=== PATIENT | female | born 1975 | race Caucasian/White ===

== ENCOUNTER 2017-06-05 08:15 | Emergency (ER) | payer BC ==
[~2017-06-05] VITALS: Ht 170.2 cm; Wt 82.0 kg
[2017-06-05] MEDS ORDERED: IPRATROPIUM BROMIDE (0.02%) 0.5MG/2.5ML NEB HHN STA (08:28)
[2017-06-05] MEDS ORDERED: ALBUTEROL (0.083%) 2.5MG/3ML NEB HHN STA (08:28)
[2017-06-05] MEDS ORDERED: METHYLPREDNISOLONE SOD SUCC 125 MG/2 ML VIAL IV STA (08:28)
[2017-06-05] MEDS ORDERED: MAGNESIUM 2 G PREMIX 50 ML IV STA (08:28)
[2017-06-05] MEDS ORDERED: IBUPROFEN 600MG TABLET PO ONE (10:15)
[2017-06-05 10:44] VITALS: BP 151/85
== END 2017-06-05 11:55 | disposition home or self-care (01) ==
LOC: ER 08:30
DX: J45.901 Unspecified asthma with (acute) exacerbation (principal); F41.8 Other specified anxiety disorders; Z88.5 Allergy status to narcotic agent
CPT/HCPCS: 71010; 93005; 94644; 96365; 96375; 99285; J2930; J3475; J7611

== ENCOUNTER → 2020-05-03 | Outpatient (CLI) | payer BC ==
[~2020-05-03] MED LIST: ALBUTEROL INHALER; FLUT1DIS6 IH; MONT10TA26 PO; PROVENTIL INHALER
== END | disposition home or self-care (01) ==
LOC: LAB 14:00
PROVIDERS: ATTEND Obstetrics & Gynecology Obstetrics
DX: Z01.812 Encounter for preprocedural laboratory examination (principal); Z20.828 Contact with and (suspected) exposure to other viral communicable diseases
CPT/HCPCS: C9803; U0003

== ENCOUNTER 2020-05-05 10:21 | Day surgery (SDC) | payer BC ==
[~2020-05-05] VITALS: Ht 167.6 cm; Wt 92.5 kg
[~2020-05-05 10:21] MED LIST changes: -MONT10TA26 PO; +MONT10TA96 PO
[2020-05-05] MEDS ORDERED: LACTATED RINGERS 1,000 ML IV SCH (10:30)
[2020-05-05 10:58] LABS: BASOPHILS % 0.9 % (0.0-2.0); EOSINOPHILS % 2.1 % (0.0-5.0); HEMATOCRIT. 36.7 % (36.0-48.0); HEMOGLOBIN. 12.1 g/dL (12.0-16.0); LYMPHOCYTES % 17.6 % (20.0-50.0); MEAN CORPUSCULAR HEMOGLOBIN 28.1 pg (28.0-32.0); MEAN CORPUSCULAR VOLUME 84.9 fL (81.0-99.0); MONOCYTES % 9.9 % (2.0-8.0); NEUTROPHILS % 69.5 % (40.0-76.0); PLATELET 273 x1000/uL (130-400); RED BLOOD CELL COUNT 4.32 mill/uL (4.2-5.4); RED CELL DISTRIBUTION WIDTH 15.6 % (11.6-14.6)
[2020-05-05 11:01] LABS: CLARITY URINE CLEAR (CLEAR); COLOR URINE YELLOW (YELLOW); KETONES URINE NEGATIVE (NEGATIVE); LEUKOCYTE ESTERASE URINE 1+ (NEGATIVE); NITRITE URINE NEGATIVE (NEGATIVE); OCCULT BLOOD URINE NEGATIVE (NEGATIVE); PROTEIN URINE NEGATIVE (NEGATIVE); SPECIFIC GRAVITY URINE 1.023 (1.005-1.030)
[2020-05-05 11:04] LABS: UCG SCREEN POSITIVE
[2020-05-05 11:04] LABS: CHLORIDE 104 mEq/L (98-107)
[2020-05-05] MEDS ORDERED: MIDAZOLAM HCL 2 MG/2 ML VIAL ONE (12:18)
[2020-05-05] MEDS ORDERED: FENTANYL CITRATE/PF 50MCG/ML 2ML VIAL ONE (12:18)
[2020-05-05] MEDS ORDERED: CEFAZOLIN SODIUM 1000MG/VIAL ONE (12:19)
[2020-05-05] MEDS ORDERED: SODIUM CHLORIDE 0.9% 10ML VIAL ONE (12:19)
[2020-05-05] MEDS ORDERED: PROPOFOL 200MG/20ML VIAL IV ONE (12:24)
[2020-05-05] MEDS ORDERED: LIDOCAINE HCL/PF 1% 10 MG/ML 5ML VIAL ONE (12:24)
[2020-05-05] MEDS ORDERED: ROCURONIUM BROMIDE 10MG/ML VIAL 5ML IV ONE (12:31)
[2020-05-05] MEDS ORDERED: DEXAMETHASONE 4MG/ML 1ML VIAL ONE ×2 (13:05→13:18)
[2020-05-05] MEDS ORDERED: METOCLOPRAMIDE HCL 10MG/2ML VIAL ONE (13:10)
[2020-05-05] MEDS ORDERED: ONDANSETRON HCL 4MG/2ML INJ ONE (13:10)
[2020-05-05] MEDS ORDERED: HYDROMORPHONE HCL/PF 2MG/ML CPJ IV PRN (13:45)
== END 2020-05-05 15:30 | disposition home or self-care (01) ==
LOC: OR 10:21
PROVIDERS: ATTEND Obstetrics & Gynecology Obstetrics
DX: O02.1 Missed abortion (principal); D25.9 Leiomyoma of uterus, unspecified; J45.909 Unspecified asthma, uncomplicated; I10 Essential (primary) hypertension; E66.9 Obesity, unspecified; Z98.891 History of uterine scar from previous surgery; Z88.5 Allergy status to narcotic agent; Z79.899 Other long term (current) drug therapy; Z80.9 Family history of malignant neoplasm, unspecified; Z82.3 Family history of stroke; Z82.49 Family history of ischemic heart disease and other diseases of the circulatory system; Z68.33 Body mass index [BMI] 33.0-33.9, adult
CPT/HCPCS: 36415; 59820; 80048; 81003; 81025; 85025; 86900; 86901; 88305; J0690; J1100; J2250; J2405; J2704; J2765; J3010; J3490

== ENCOUNTER 2023-12-30 22:58 | Inpatient (IN) | payer OTHER, MEDICAID ==
[~2023-12-30] VITALS: Ht 167.6 cm; Wt 93.4 kg
[~2023-12-30 22:58] MED LIST changes: -ALBUTEROL INHALER; +MONT-39 PO; -MONT10TA96 PO
[2023-12-30 23:15] VITALS: RESP 42
[2023-12-30] MEDS ORDERED: EPINEPHRINE 1:1000 1 MG/ML AMP INJ ONE (23:15)
[2023-12-30 23:41] VITALS: RESP 23
[2023-12-30] MEDS: IPRATROPIUM BROMIDE (0.02%) 0.5MG/2.5ML NEB HHN STA (23:41)
[2023-12-30] MEDS: ALBUTEROL (0.083%) 2.5MG/3ML NEB HHN SCH (23:41)
[2023-12-30] MEDS: EPINEPHRINE 1:1000 1 MG/ML AMP IM NR (23:43)
[2023-12-31] VITALS (16 sets, daily range): BP systolic 93–123; BP diastolic 72–93; PULSE 79–90; RESP 14–50; TEMP 98.3–98.5; O2SAT 97–99
[2023-12-31] MEDS: DEXAMETHASONE 4MG/ML 1ML VIAL IV ONE (00:09)
[2023-12-31] MEDS: MAGNESIUM 2 G PREMIX 50 ML IV ONE (00:20)
[2023-12-31 00:23] LABS: BG CARBOXYHEMOGLOBIN 0.3 % (0.5-1.5); BG DEOXYHEMOGLOBIN 40.6 % (0.0-5.0); BG FRACTION INSPIRED OXYGEN 40; BG HCO3 ACT 25.8 mmol/L (22.0-26.0); BG METHEMOGLOBIN 0.3 % (0.0-1.5); BG OXYGEN SATURATION 59.2 % (92.0-98.5); BG OXYHEMOGLOBIN 58.8 % (94.0-97.0); BG PCO2 46.5 mmHg (35.0-45.0); BG PH 7.362 (7.350-7.450); BG PO2 30.7 mmHg (75.0-100.0); BG SAMPLE SITE LEFT BRACHIAL; BG TOTAL HEMOGLOBIN 14.1 g/dL (12.0-18.0); BG VENT MODE MASK - BIPAP
[2023-12-31 00:29] LABS: BASOPHILS % 1.1 % (0.0-2.0); EOSINOPHILS % 7.6 % (0.0-5.0); HEMOGLOBIN. 12.9 g/dL (12.0-16.0); LYMPHOCYTES % 7.2 % (20.0-50.0); MEAN CORPUSCULAR HEMOGLOBIN 29.3 pg (28.0-32.0); MEAN CORPUSCULAR HGB CONC 33.1 g/dL (31.0-37.0); MEAN CORPUSCULAR VOLUME 88.4 fL (81.0-99.0); MEAN PLATELET VOLUME 8.8 fl (7.4-10.4); MONOCYTES % 4.1 % (2.0-8.0); PLATELET 293 x1000/uL (130-400); RED BLOOD CELL COUNT 4.41 mill/uL (4.2-5.4); RED CELL DISTRIBUTION WIDTH 13.2 % (11.6-14.6); WHITE BLOOD COUNT 8.3 x1000/uL (4.5-11.0)
[2023-12-31 00:34] LABS: CHLORIDE 108 mEq/L (98-107); POTASSIUM 3.8 mEq/L (3.5-5.1); SODIUM 141 mEq/L (136-145)
[2023-12-31 00:35] LABS: CALCIUM 9.7 mg/dL (8.7-10.4); CARBON DIOXIDE 25 mEq/L (21-32)
[2023-12-31 00:40] LABS: CREATININE 0.8 mg/dL (0.6-1.0); GLUCOSE 123 mg/dL (70-105); UREA NITROGEN BLOOD 9 mg/dL (9-23)
[2023-12-31 00:42] LABS: ALANINE AMINOTRANSFERASE 16 IU/L (10-49); ALBUMIN 4.4 g/dL (3.2-4.8); ASPARTATE AMINOTRANSFERASE 17 IU/L (<34); BILIRUBIN TOTAL 0.4 mg/dL (0.1-1.0); PROTEIN TOTAL 7.6 g/dL (6.0-8.3)
[2023-12-31 00:54] LABS: HCG SCREEN NEGATIVE
[2023-12-31 01:18] LABS: TROPONIN I HIGH SENSITIVITY < 4 ng/L (3.0-34)
[2023-12-31] MEDS ORDERED: IPRATROPIUM/ALBUTEROL 0.5-3(2.5)MG/3ML NEB HHN PRN (02:30)
[2023-12-31] MEDS ORDERED: ONDANSETRON HCL 4MG/2ML INJ IV PRN (02:30)
[2023-12-31 02:46] LABS: BG CARBOXYHEMOGLOBIN 0.1 % (0.5-1.5); BG FRACTION INSPIRED OXYGEN 40; BG HCO3 ACT 25.4 mmol/L (22.0-26.0); BG METHEMOGLOBIN 0.2 % (0.0-1.5); BG OXYHEMOGLOBIN 98.7 % (94.0-97.0); BG PCO2 44.2 mmHg (35.0-45.0); BG PH 7.378 (7.350-7.450); BG PO2 148.4 mmHg (75.0-100.0); BG SAMPLE SITE RIGHT RADIAL; BG TOTAL HEMOGLOBIN 14.3 g/dL (12.0-18.0); BG TOTAL RESPIRATORY RATE 21 b/min; BG VENT MODE MASK - BIPAP
[2023-12-31] MEDS ORDERED: FLUTICASONE/VILANTEROL 200-25 BLST.W.DEV ORI SCH (09:00)
[2023-12-31] MEDS: LOSARTAN 25 MG TABLET PO SCH (10:45)
[2023-12-31] MEDS: FAMOTIDINE 20MG/2ML VIAL IV SCH (14:32)
[2023-12-31] MEDS: METHYLPREDNISOLONE SOD SUCC 40MG/ML (ACT-O-VIAL) IV SCH (14:32)
[2023-12-31] MEDS: ACETAMINOPHEN 325MG TABLET PO PRN (14:38)
[2023-12-31] MEDS: IPRATROPIUM/ALBUTEROL 0.5-3(2.5)MG/3ML NEB HHN SCH (15:33)
[2023-12-31] MEDS: MONTELUKAST SODIUM 10MG TABLET PO SCH (17:05)
[2023-12-31] MEDS: DULOXETINE HCL 30MG DR CAPSULE PO SCH (21:23)
[2023-12-31] MEDS: MYCOPHENOLATE MOFETIL 500MG TABLET PO SCH (21:24)
[2023-12-31 22:47] LABS: HEPATITIS B SURFACE ANTIGEN NEGATIVE (Negative)
[2023-12-31 23:08] LABS: HEPATITIS C AB NON REACTIVE (Neg) (Negative)
[2024-01-01] VITALS (17 sets, daily range): BP systolic 96–122; BP diastolic 67–96; PULSE 68–104; RESP 14–40; TEMP 97.2–98.2; O2SAT 95–98
[2024-01-01] MEDS ORDERED: METHYLPREDNISOLONE SOD SUCC 40MG/ML (ACT-O-VIAL) IV SCH
[2024-01-01] MEDS: METHYLPREDNISOLONE SOD SUCC 125MG/2ML (ACT-O-VIAL) IV SCH (06:00)
[2024-01-01 06:29] LABS: HEMATOCRIT. 41.4 % (36.0-48.0); HEMOGLOBIN. 13.3 g/dL (12.0-16.0); MEAN CORPUSCULAR HEMOGLOBIN 28.7 pg (28.0-32.0); MEAN CORPUSCULAR HGB CONC 32.1 g/dL (31.0-37.0); MEAN CORPUSCULAR VOLUME 89.4 fL (81.0-99.0); PLATELET 309 x1000/uL (130-400); RED BLOOD CELL COUNT 4.63 mill/uL (4.2-5.4); RED CELL DISTRIBUTION WIDTH 13.9 % (11.6-14.6); WHITE BLOOD COUNT 13.1 x1000/uL (4.5-11.0)
[2024-01-01 06:48] LABS: CARBON DIOXIDE 25 mEq/L (21-32); CHLORIDE 106 mEq/L (98-107); POTASSIUM 4.6 mEq/L (3.5-5.1); SODIUM 136 mEq/L (136-145)
[2024-01-01 06:49] LABS: CALCIUM 9.6 mg/dL (8.7-10.4)
[2024-01-01 06:53] LABS: CREATININE 0.8 mg/dL (0.6-1.0)
[2024-01-01 06:54] LABS: GLUCOSE 198 mg/dL (70-105); UREA NITROGEN BLOOD 12 mg/dL (9-23)
[2024-01-01 07:21] LABS: DIFFERENTIAL COMMENT 1
[2024-01-01 08:33] LABS: CREATINE KINASE 49 IU/L (34-145)
[2024-01-01] MEDS: FOLIC ACID 1MG TABLET PO SCH (08:37)
[2024-01-01] MEDS: METHOTREXATE SODIUM 2 . 5MG TABLET PO SCH ×3 (08:38→21:18)
[2024-01-01] MEDS: TRAMADOL 50MG TABLET PO PRN (08:39)
[2024-01-01] MEDS: OLANZAPINE 10 MG/VIAL IM NR (11:30)
[2024-01-01] MEDS ORDERED: OLANZAPINE 10 MG/VIAL IM NR (12:00)
[2024-01-01] MEDS ORDERED: NALOXONE HCL 0.4MG/ML VIAL IV PRN (15:45)
[2024-01-01 16:24] LABS: PLATELET ESTIMATE NORMAL
[2024-01-01] MEDS: DOCUSATE SODIUM 250MG CAPSULE PO PRN (18:04)
[2024-01-02] VITALS (17 sets, daily range): BP systolic 96–120; BP diastolic 79–95; PULSE 62–91; RESP 0–27; TEMP 97.4–98.4; O2SAT 96–98
[2024-01-02] MEDS ORDERED: LIDOCAINE HCL/PF 1% 2ML VIAL ONE (09:00)
[2024-01-02 09:07] LABS: ANTI-DNA DOUBLE STRANDED QUANT < 1 IU/mL (0-9)
[2024-01-02 09:29] LABS: CARBON DIOXIDE 23 mEq/L (21-32); CHLORIDE 104 mEq/L (98-107); POTASSIUM 4.9 mEq/L (3.5-5.1); SODIUM 135 mEq/L (136-145)
[2024-01-02 09:30] LABS: CALCIUM 9.5 mg/dL (8.7-10.4)
[2024-01-02 09:35] LABS: CREATININE 0.7 mg/dL (0.6-1.0); GLUCOSE 167 mg/dL (70-105); UREA NITROGEN BLOOD 11 mg/dL (9-23)
[2024-01-02 11:11] LABS: HEMATOCRIT. 40.9 % (36.0-48.0); HEMOGLOBIN. 13.5 g/dL (12.0-16.0); MEAN CORPUSCULAR HEMOGLOBIN 29.6 pg (28.0-32.0); MEAN CORPUSCULAR HGB CONC 32.9 g/dL (31.0-37.0); MEAN CORPUSCULAR VOLUME 89.8 fL (81.0-99.0); MEAN PLATELET VOLUME 9.2 fl (7.4-10.4); RED BLOOD CELL COUNT 4.56 mill/uL (4.2-5.4); RED CELL DISTRIBUTION WIDTH 14.1 % (11.6-14.6); WHITE BLOOD COUNT 14.3 x1000/uL (4.5-11.0)
[2024-01-02 11:15] LABS: DIFFERENTIAL COMMENT 1; PLATELET 309 x1000/uL (130-400)
[2024-01-02] MEDS ORDERED: LIDOCAINE HCL/PF 1% 2ML VIAL INFIL NR (15:00)
[2024-01-02 16:00] LABS: BG BASE EXCESS -0.6 mmol/L (-2.0-2.0); BG CARBOXYHEMOGLOBIN 0.1 % (0.5-1.5); BG FRACTION INSPIRED OXYGEN 21; BG HCO3 ACT 22.7 mmol/L (22.0-26.0); BG METHEMOGLOBIN 0.1 % (0.0-1.5); BG OXYHEMOGLOBIN 96.8 % (94.0-97.0); BG PCO2 33.7 mmHg (35.0-45.0); BG PH 7.447 (7.350-7.450); BG PO2 84.7 mmHg (75.0-100.0); BG SAMPLE SITE RIGHT RADIAL; BG TOTAL HEMOGLOBIN 14.4 g/dL (12.0-18.0); BG VENT MODE ROOM AIR
[2024-01-02 16:02] LABS: PLATELET ESTIMATE NORMAL
[2024-01-02] MEDS: METHYLPREDNISOLONE SOD SUCC 125MG/2ML (ACT-O-VIAL) IV SCH (23:05)
[2024-01-03] VITALS (17 sets, daily range): BP systolic 101–137; BP diastolic 76–95; PULSE 57–87; RESP 10–21; TEMP 97.6–98.4; O2SAT 98–100
[2024-01-03 09:11] LABS: ANGIOTENSION CONVERTING ENZYME 30 U/L (14-82)
[2024-01-03 10:12] LABS: ANTI-JO 1 ABS >8.0 AI (0.0-0.9); RNP ANTIBODY < 0.2 AI (0.0-0.9); SMITH ANTIBODY < 0.2 AI (0.0-0.9)
[2024-01-03] MEDS: OLANZAPINE 5MG TABLET PO SCH (15:20)
[2024-01-03] MEDS ORDERED: IBUPROFEN 400MG TABLET PO NR (16:47)
[2024-01-03 17:06] LABS: ALDOLASE 3.7 U/L (3.3-10.3)
[2024-01-03 20:14] LABS: HEMOGLOBIN. 12.9 g/dL (12.0-16.0); MEAN CORPUSCULAR HEMOGLOBIN 29.4 pg (28.0-32.0); MEAN CORPUSCULAR HGB CONC 32.9 g/dL (31.0-37.0); MEAN CORPUSCULAR VOLUME 89.4 fL (81.0-99.0); MEAN PLATELET VOLUME 8.8 fl (7.4-10.4); PLATELET 288 x1000/uL (130-400); RED BLOOD CELL COUNT 4.37 mill/uL (4.2-5.4); RED CELL DISTRIBUTION WIDTH 13.6 % (11.6-14.6); WHITE BLOOD COUNT 8.7 x1000/uL (4.5-11.0)
[2024-01-03 20:17] LABS: DIFFERENTIAL COMMENT 1
[2024-01-03 20:20] LABS: CHLORIDE 103 mEq/L (98-107); POTASSIUM 4.5 mEq/L (3.5-5.1); SODIUM 134 mEq/L (136-145)
[2024-01-03 20:21] LABS: CARBON DIOXIDE 25 mEq/L (21-32)
[2024-01-03 20:22] LABS: CALCIUM 8.8 mg/dL (8.7-10.4)
[2024-01-03 20:26] LABS: CREATININE 0.9 mg/dL (0.6-1.0); GLUCOSE 257 mg/dL (70-105); UREA NITROGEN BLOOD 17 mg/dL (9-23)
[2024-01-03 20:36] LABS: PLATELET ESTIMATE NORMAL
[2024-01-04] VITALS (16 sets, daily range): BP systolic 105–140; BP diastolic 76–106; PULSE 54–102; RESP 10–19; TEMP 97.1–97.9; O2SAT 98–100
[2024-01-04] MEDS: METHYLPREDNISOLONE SOD SUCC 125MG/2ML (ACT-O-VIAL) IV SCH (05:16)
[2024-01-04 07:44] LABS: HEMATOCRIT. 40.5 % (36.0-48.0); HEMOGLOBIN. 13.1 g/dL (12.0-16.0); MEAN CORPUSCULAR HGB CONC 32.4 g/dL (31.0-37.0); MEAN CORPUSCULAR VOLUME 89.6 fL (81.0-99.0); MEAN PLATELET VOLUME 8.9 fl (7.4-10.4); PLATELET 268 x1000/uL (130-400); RED BLOOD CELL COUNT 4.52 mill/uL (4.2-5.4); RED CELL DISTRIBUTION WIDTH 13.7 % (11.6-14.6)
[2024-01-04 07:48] LABS: DIFFERENTIAL COMMENT 1
[2024-01-04 08:19] LABS: CARBON DIOXIDE 27 mEq/L (21-32); CHLORIDE 102 mEq/L (98-107); POTASSIUM 4.4 mEq/L (3.5-5.1); SODIUM 136 mEq/L (136-145)
[2024-01-04 08:25] LABS: CREATININE 0.8 mg/dL (0.6-1.0); GLUCOSE 196 mg/dL (70-105); UREA NITROGEN BLOOD 16 mg/dL (9-23)
[2024-01-04] MEDS: PILOCARPINE HCL 5MG TABLET PO SCH (14:17)
[2024-01-04 15:51] LABS: PLATELET ESTIMATE NORMAL
[2024-01-04] MEDS: CLONIDINE 0.1MG TABLET PO PRN (23:15)
[2024-01-05] VITALS (11 sets, daily range): BP systolic 104–142; BP diastolic 66–107; PULSE 65–103; RESP 11–18; TEMP 97–97.5
[2024-01-05 10:49] LABS: BG BASE EXCESS 0.7 mmol/L (-2.0-2.0); BG CARBOXYHEMOGLOBIN 0.8 % (0.5-1.5); BG DEOXYHEMOGLOBIN 6.2 % (0.0-5.0); BG METHEMOGLOBIN 0.1 % (0.0-1.5); BG OXYGEN SATURATION 93.7 % (92.0-98.5); BG OXYHEMOGLOBIN 92.9 % (94.0-97.0); BG PH 7.425 (7.350-7.450); BG PO2 66.3 mmHg (75.0-100.0); BG SAMPLE SITE LEFT RADIAL; BG TOTAL HEMOGLOBIN 14.3 g/dL (12.0-18.0); BG VENT MODE ROOM AIR
[2024-01-05] MEDS: KETOROLAC 15MG/ML VIAL IV NR (16:08)
[2024-01-05 22:05] LABS: HEMATOCRIT. 40.2 % (36.0-48.0); HEMOGLOBIN. 13.2 g/dL (12.0-16.0); MEAN CORPUSCULAR HGB CONC 32.7 g/dL (31.0-37.0); MEAN CORPUSCULAR VOLUME 88.6 fL (81.0-99.0); MEAN PLATELET VOLUME 9.2 fl (7.4-10.4); PLATELET 287 x1000/uL (130-400); RED BLOOD CELL COUNT 4.54 mill/uL (4.2-5.4); RED CELL DISTRIBUTION WIDTH 13.6 % (11.6-14.6)
[2024-01-05 22:09] LABS: CHLORIDE 101 mEq/L (98-107); POTASSIUM 4.4 mEq/L (3.5-5.1); SODIUM 133 mEq/L (136-145)
[2024-01-05 22:10] LABS: CALCIUM 8.7 mg/dL (8.7-10.4); CARBON DIOXIDE 28 mEq/L (21-32)
[2024-01-05 22:15] LABS: CREATININE 0.9 mg/dL (0.6-1.0); GLUCOSE 254 mg/dL (70-105); UREA NITROGEN BLOOD 17 mg/dL (9-23)
[2024-01-05 22:16] LABS: DIFFERENTIAL COMMENT 1
[2024-01-05 22:34] LABS: PLATELET ESTIMATE NORMAL
[2024-01-06] VITALS: BP 133/93; PULSE 67; RESP 15; TEMP 97.6
[2024-01-06 04:00] VITALS: BP 125/92; PULSE 81; RESP 19; TEMP 97
[2024-01-06 04:06] LABS: ANA IFA Negative (.)
[2024-01-06 07:12] LABS: CHLORIDE 103 mEq/L (98-107); POTASSIUM 4.6 mEq/L (3.5-5.1); SODIUM 135 mEq/L (136-145)
[2024-01-06 07:13] LABS: CALCIUM 8.7 mg/dL (8.7-10.4); CARBON DIOXIDE 27 mEq/L (21-32)
[2024-01-06 07:18] LABS: CREATININE 0.9 mg/dL (0.6-1.0); GLUCOSE 236 mg/dL (70-105); UREA NITROGEN BLOOD 18 mg/dL (9-23)
[2024-01-06 08:00] VITALS: BP 157/108; PULSE 90; RESP 18; TEMP 97.5
[2024-01-06 12:00] VITALS: BP 154/104; PULSE 71; RESP 16; TEMP 97.8
[2024-01-06 16:00] VITALS: BP 149/103; PULSE 85; RESP 16; TEMP 97.6
[2024-01-06] MEDS: AMLODIPINE 5MG TABLET PO SCH (18:36)
[2024-01-06 20:00] VITALS: BP 144/104; PULSE 68; RESP 10; TEMP 97.2
[2024-01-06] MEDS: KETOROLAC 30MG/ML VIAL IV NR (21:21)
[2024-01-07] VITALS: BP 130/95; PULSE 62; RESP 15; TEMP 96.8
[2024-01-07 04:00] VITALS: BP 123/92; PULSE 68; RESP 16; TEMP 98
[2024-01-07 06:49] LABS: HEMATOCRIT 41.4 % (36.0-48.0); HEMOGLOBIN 13.7 g/dL (12.0-16.0); MEAN CORPUSCULAR HEMOGLOBIN 29.1 pg (28.0-32.0); MEAN CORPUSCULAR HGB CONC 33.1 g/dL (31.0-37.0); PLATELET 266 x1000/uL (130-400); RED CELL DISTRIBUTION WIDTH 13.4 % (11.6-14.6); WHITE BLOOD COUNT 10.3 x1000/uL (4.5-11.0)
[2024-01-07 06:52] LABS: CARBON DIOXIDE 26 mEq/L (21-32); CHLORIDE 102 mEq/L (98-107); POTASSIUM 4.4 mEq/L (3.5-5.1); SODIUM 133 mEq/L (136-145)
[2024-01-07 06:54] LABS: CALCIUM 8.6 mg/dL (8.7-10.4)
[2024-01-07 06:58] LABS: CREATININE 0.9 mg/dL (0.6-1.0); GLUCOSE 304 mg/dL (70-105)
[2024-01-07 06:59] LABS: UREA NITROGEN BLOOD 19 mg/dL (9-23)
[2024-01-07 08:00] VITALS: BP 152/104; PULSE 73; RESP 12; TEMP 97.6
[2024-01-07] MEDS ORDERED: DEXTROSE 50% WATER 50ML SYRINGE IV PRN (10:00)
[2024-01-07] MEDS ORDERED: HYDRALAZINE 20MG/ML VIAL IV PRN (11:00)
[2024-01-07 12:00] VITALS: BP 151/105; PULSE 88; RESP 22; TEMP 97.7
[2024-01-07] MEDS ORDERED: MAGN100T PO (12:40)
[2024-01-07] MEDS ORDERED: black seed oil (12:40)
[2024-01-07] MEDS ORDERED: [UNRECOGNIZED DRUG - OTHER] (12:40)
[2024-01-07] MEDS ORDERED: [UNRECOGNIZED DRUG - OTHER] (12:40)
[2024-01-07] MEDS: BLOOD SUGAR DIAGNOSTIC STRIP TEST SCH (13:18)
[2024-01-07] MEDS: INSULIN LISPRO 100 UNITS/ML SUBCUT SCH (14:11)
[2024-01-07] MEDS ORDERED: IBUPROFEN 800MG TABLET PO PRN (14:30)
[2024-01-07 16:00] VITALS: BP 143/95; PULSE 74; RESP 17; TEMP 98.3
[2024-01-07] MEDS: METHYLPREDNISOLONE SOD SUCC 125MG/2ML (ACT-O-VIAL) IV SCH (18:23)
[2024-01-07 20:34] VITALS: BP 144/93; PULSE 68; RESP 17; TEMP 97.8
[2024-01-07] MEDS: BUPROPION HCL 75MG TABLET PO SCH (21:18)
[2024-01-07] MEDS: FAMOTIDINE 20MG TABLET PO SCH (21:18)
[2024-01-07] MEDS: DICLOFENAC SODIUM 75MG DR TABLET PO SCH (21:19)
[2024-01-08] VITALS: BP 151/90; PULSE 81; RESP 15; TEMP 98
[2024-01-08 04:00] VITALS: BP 142/96; PULSE 68; RESP 13
[2024-01-08 08:00] VITALS: BP 145/95; PULSE 79; RESP 30; TEMP 98
[2024-01-08] MEDS: LOSARTAN 25 MG TABLET PO SCH (08:40)
[2024-01-08] MEDS: MAGNESIUM/ALUMINUM HYDROXIDE/SIMETHICONE 30ML UDC PO NR (10:30)
[2024-01-08 11:00] LABS: CHLORIDE 101 mEq/L (98-107); POTASSIUM 4.6 mEq/L (3.5-5.1); SODIUM 135 mEq/L (136-145)
[2024-01-08 11:01] LABS: CALCIUM 9.2 mg/dL (8.7-10.4); CARBON DIOXIDE 28 mEq/L (21-32)
[2024-01-08 11:07] LABS: CREATININE 0.9 mg/dL (0.6-1.0); GLUCOSE 288 mg/dL (70-105); UREA NITROGEN BLOOD 19 mg/dL (9-23)
[2024-01-08 12:00] VITALS: BP 147/94; PULSE 77; RESP 18; TEMP 97.2
[2024-01-08] MEDS: KETOROLAC 10MG TABLET PO SCH (12:25)
[2024-01-08 14:01] LABS: HEMATOCRIT 45.1 % (36.0-48.0); HEMOGLOBIN 14.6 g/dL (12.0-16.0); MEAN CORPUSCULAR HGB CONC 32.3 g/dL (31.0-37.0); MEAN CORPUSCULAR VOLUME 89.9 fL (81.0-99.0); PLATELET 276 x1000/uL (130-400); RED BLOOD CELL COUNT 5.02 mill/uL (4.2-5.4); RED CELL DISTRIBUTION WIDTH 13.6 % (11.6-14.6); WHITE BLOOD COUNT 14.3 x1000/uL (4.5-11.0)
[2024-01-08 16:00] VITALS: BP 122/87; PULSE 96; RESP 18; TEMP 97.1
[2024-01-08 20:00] VITALS: BP 139/89; PULSE 86; RESP 20; TEMP 97.7
[2024-01-09] VITALS: BP 123/84; PULSE 85; RESP 22; TEMP 97.1
[2024-01-09 04:00] VITALS: BP 148/99; PULSE 79; RESP 20; TEMP 97.5
[2024-01-09] MEDS ORDERED: LIDOCAINE HCL/PF 1% 2ML VIAL ONE (07:00)
[2024-01-09] MEDS: INSULIN LISPRO 100 UNITS/ML SUBCUT SCH ×2 (09:44→13:04)
[2024-01-09 12:00] VITALS: BP 120/80; PULSE 72; RESP 16; TEMP 97.2
[2024-01-09] MEDS: KETOROLAC 15MG/ML VIAL IV NR (13:06)
[2024-01-09 13:25] LABS: BG BASE EXCESS 0.7 mmol/L (-2.0-2.0); BG CARBOXYHEMOGLOBIN 0.5 % (0.5-1.5); BG DEOXYHEMOGLOBIN 3.2 % (0.0-5.0); BG FRACTION INSPIRED OXYGEN 21; BG HCO3 ACT 22.7 mmol/L (22.0-26.0); BG METHEMOGLOBIN 0.3 % (0.0-1.5); BG OXYGEN SATURATION 96.8 % (92.0-98.5); BG PCO2 29.3 mmHg (35.0-45.0); BG PH 7.507 (7.350-7.450); BG PO2 81.9 mmHg (75.0-100.0); BG SAMPLE SITE LEFT RADIAL; BG VENT MODE ROOM AIR
[2024-01-09 16:00] VITALS: BP 149/100; PULSE 80; RESP 19; TEMP 97.4
[2024-01-09 18:23] LABS: HEMATOCRIT. 42.9 % (36.0-48.0); HEMOGLOBIN. 13.8 g/dL (12.0-16.0); MEAN CORPUSCULAR HEMOGLOBIN 29.2 pg (28.0-32.0); MEAN CORPUSCULAR HGB CONC 32.3 g/dL (31.0-37.0); MEAN CORPUSCULAR VOLUME 90.5 fL (81.0-99.0); MEAN PLATELET VOLUME 8.6 fl (7.4-10.4); PLATELET 259 x1000/uL (130-400); RED BLOOD CELL COUNT 4.74 mill/uL (4.2-5.4); RED CELL DISTRIBUTION WIDTH 13.5 % (11.6-14.6); WHITE BLOOD COUNT 16.2 x1000/uL (4.5-11.0)
[2024-01-09 18:24] LABS: DIFFERENTIAL COMMENT 1
[2024-01-09 18:27] LABS: CHLORIDE 103 mEq/L (98-107); POTASSIUM 4.2 mEq/L (3.5-5.1); SODIUM 135 mEq/L (136-145)
[2024-01-09 18:28] LABS: CARBON DIOXIDE 28 mEq/L (21-32)
[2024-01-09 18:29] LABS: CALCIUM 8.8 mg/dL (8.7-10.4)
[2024-01-09 18:33] LABS: CREATININE 0.8 mg/dL (0.6-1.0); GLUCOSE 197 mg/dL (70-105)
[2024-01-09 18:34] LABS: UREA NITROGEN BLOOD 17 mg/dL (9-23)
[2024-01-09 18:47] LABS: PLATELET ESTIMATE NORMAL
[2024-01-09 20:00] VITALS: BP 144/84; PULSE 77; RESP 19; TEMP 97.7
[2024-01-10] VITALS: BP 111/65; PULSE 89; RESP 19; TEMP 97.8
[2024-01-10 04:00] VITALS: BP 123/69; PULSE 87; RESP 20; TEMP 97
[2024-01-10 08:00] VITALS: BP 126/75; PULSE 73; RESP 18; TEMP 96.9
[2024-01-10] MEDS: LOSARTAN 50 MG TABLET PO SCH (08:05)
[2024-01-10] MEDS ORDERED: METH2.5T PO (10:28)
[2024-01-10] MEDS ORDERED: DICL50TA9 PO (10:28)
[2024-01-10] MEDS ORDERED: FOLI-43 PO (10:28)
[2024-01-10] MEDS ORDERED: METF-414 PO (10:28)
[2024-01-10] MEDS ORDERED: CEVI30CA12 PO (10:28)
[2024-01-10] MEDS ORDERED: BUPR75TA8 PO (10:28)
[2024-01-10] MEDS ORDERED: P20 PO (10:28)
[2024-01-10] MEDS ORDERED: CELL5 PO (10:28)
[2024-01-10 12:00] VITALS: BP 142/90; PULSE 78; RESP 16; TEMP 97.8
[2024-01-10 12:10] VITALS: BP 126/75; PULSE 73; TEMP 96.9; O2SAT 96
== END 2024-01-10 12:45 | disposition home or self-care (01) | DRG 545 ==
LOC: ER 22:58 → 5EST 12-31 00:43 → EDBEDREQSVC 12-31 03:11 → 7EST 01-08 11:40
PROVIDERS: ADMIT Internal Medicine; ATTEND Internal Medicine
PROC: 5A09357 Assistance with Respiratory Ventilation, Less than 24 Consecutive Hours, Continuous Positive Airway Pressure (ICD-10-PCS; principal; 2023-12-31)
PROC: 5A09357 Assistance with Respiratory Ventilation, Less than 24 Consecutive Hours, Continuous Positive Airway Pressure (ICD-10-PCS; 2024-01-01)
PROC: 5A0945A Assistance with Respiratory Ventilation, 24-96 Consecutive Hours, High Flow/Velocity Cannula (ICD-10-PCS; 2024-01-01)
DX: M33.91 Dermatopolymyositis, unspecified with respiratory involvement (principal); J96.21 Acute and chronic respiratory failure with hypoxia; J96.22 Acute and chronic respiratory failure with hypercapnia; J84.9 Interstitial pulmonary disease, unspecified; J45.901 Unspecified asthma with (acute) exacerbation; F32.A Depression, unspecified; I10 Essential (primary) hypertension; R73.9 Hyperglycemia, unspecified; D89.89 Other specified disorders involving the immune mechanism, not elsewhere classified; Z20.822 Contact with and (suspected) exposure to COVID-19; R13.10 Dysphagia, unspecified; M35.00 Sjogren syndrome, unspecified; G62.9 Polyneuropathy, unspecified; G89.4 Chronic pain syndrome; Z90.710 Acquired absence of both cervix and uterus; Z91.148 Patient's other noncompliance with medication regimen for other reason; Z91.199 Patient's noncompliance with other medical treatment and regimen due to unspecified reason
CPT/HCPCS: 36415; 36600; 71045; 71250; 80048; 80053; 82085; 82164; 82375; 82550; 82805; 82962; 83036; 84484; 84703; 85025; 85027; 85379; 86225; 86235; 86256; 86431; 86705; 87070; 87340; 87426; 87430; 93005; 93306; 93970; 94640; 94660; 97162; 97164; 97166; 97530; 97535; 99291; J1100; J1815; J1885; J2919; J2920; J3475; J3490; J7517; J8610